=== PATIENT | male | born 1940 | race Caucasian/White ===

== ENCOUNTER 2020-08-08 09:56 | Outpatient (CLI) | payer MEDICARE ==
[~2020-08-08 09:56] MED LIST: Iopamidol 370 76% 100 ML VIAL ONE
[2020-08-08 10:08] LABS: Calc. Creatinine Clearance 0 mL/min (70-130); Estimated GFR-MDRD Greater than 90
--- NOTE | 2020-08-08 11:22 | CT ---
CT Chest W Con History: Paratracheal mass Comparison: CT of the neck 2016. Chest radiograph July 27, 2020 Findings: Right paratracheal mass extends into the anterior middle and posterior mediastinum. The mas s measures 4.5 cm in transverse with an AP dimension of 8.9 cm and a craniocaudal dimension of 8.5 cm. There is mass effect with narrowing of the superior vena cava and left brachiocephalic vein as we ll as right brachiocephalic vein. There is approximately 180 degrees involvement of the trachea and right mainstem bronchus. Large right layering pleural effusion likely malignant effusion. Compressive atelectasis right lung b ase. No suspicious left lung pulmonary nodule. No significant pericardial effusion. Evaluation of the upper abdomen demonstrates diastases recti. Ma ss interpolar left kidney measures 56 Hounsfield units concerning for malignancy and 2.6 cm in size. Also multiple masses of the right kidney which are not completely evaluated with a superior manda e anterior cortex mass measuring 77 Hounsfield units and 1.6 cm in size. Aortic contour is nonaneurysmal. Diffuse hepatic skeletal hyperostosis of the thoracic spine. No rib fracture. Impression: 1. 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 Mass has intimate involvement of the trac hea and right mainstem bronchus and may be amenable to endobronchial biopsy. Mass does cause attenuation of the superior vena cava along with right and left brachiocephalic veins. 2. Large likely malignant right pleural effusion. 3. Suspicious renal masses for which renal protocol CT or MRI is recommended.
== END 2020-08-08 09:57 | disposition home or self-care (01) ==
LOC: NAV CT 09:56
PROVIDERS: ATTEND Nurse Practitioner Adult Health
DX: R22.2 Localized swelling, mass and lump, trunk (principal); J39.8 Other specified diseases of upper respiratory tract; N28.89 Other specified disorders of kidney and ureter
CPT/HCPCS: 36415; 71260; 82565; Q9967